=== PATIENT | male | born 1965 | race Caucasian/White ===

== ENCOUNTER 2017-08-07 12:50 | Emergency (ER) | payer BC ==
[~2017-08-07] VITALS: Ht 182.8 cm; Wt 106.6 kg
[~2017-08-07 12:50] MED LIST: DAYPRO600 M1 PO; NEXIUM40 MG PO; ROBAXIN750 MG PO; VICODIN 500 MG-1 TAB PO
[2017-08-07] MEDS ORDERED: VIBRAMYCIN100 MG PO (14:03)
== END 2017-08-07 14:31 | disposition home or self-care (01) ==
LOC: ED 12:50
DX: S20.362A Insect bite (nonvenomous) of left front wall of thorax, initial encounter (principal); W57.XXXA Bitten or stung by nonvenomous insect and other nonvenomous arthropods, initial encounter; Y93.89 Activity, other specified; Y92.89 Other specified places as the place of occurrence of the external cause; Y99.8 Other external cause status; R03.0 Elevated blood-pressure reading, without diagnosis of hypertension